=== PATIENT | male | born 1995 | race African-American/Black ===

== ENCOUNTER 2020-10-15 16:18 | Emergency (ER) | payer BC, OTHER, SELFPAY ==
[2020-10-15 16:19] VITALS: BP 129/93; PULSE 73; RESP 18; TEMP 36.6; O2SAT 98; BMI 23.7
[2020-10-15 16:29] VITALS: O2SAT 98
--- NOTE | 2020-10-15 17:03 | EDS_ITS ---
HPI History of Present Illness Chief Complaint: Cough Narrative Narrative: 25-year-old male with no significant medical history presenting with cough, rhinorrhea,, subjective fevers at home for the last 24 hours. Patient states he had the [employer] COVID-19 vaccine previously. Patient does not have a thermometer. He does admit to chills and sweats. Patient does not have change in taste or smell. Patient is in the [employer] and is currently supposed to go back to his duty post in 2 days and needed to be tested for Covid in order to be able to get back on a plane. Patient denies chest pain or shortness of breath. [facility] Medical History Rhabdomyolysis Home Medications No Known/Unobtainable [No Known Home Medications] 04/01/14 [History Last Taken Unknown] Allergy/AdvReac Type Severity Reaction Status Date / Time No Known Allergies Allergy Verified 10/15/20 16:19 Social History Smoking Status: Never smoker ROS ROS ED Constitutional Constitutional ED: Reports chills and sweats; Denies subjective Eyes Eyes: Reports blurry vision and diplopia ENT ENT ED: Reports rhinorrhea and sore throat Cardiovascular Cardiovascular: Denies chest pain or palpitations Respiratory/Chest Respiratory/Chest: Reports cough; Denies dyspnea, dyspnea on exertion or sputum Gastrointestinal Gastrointestinal: Denies abdominal pain, constipation, diarrhea, nausea or vomiting Genitourinary Genitourinary ED: Denies dysuria or hematuria Musculoskeletal Musculoskeletal: Reports myalgias; Denies arthralgias, back pain or neck pain Integumentary Denies abscess or rash Neurologic Neurologic: Reports headache(s); Denies paresthesias Psychiatric Psychiatric: Denies anxiety or depression EXAM Physical Exam Const Vital Signs: 10/15/20 16:19 10/15/20 16:29 Temperature 97.8 F Temperature Source Temporal Pulse Rate 73 Respiratory Rate 18 Respiratory Effort Normal Non-Labored Respiratory Depth Normal Respiratory Pattern Normal Blood Pressure 129/93 H Blood Pressure Mean 105 Pulse Ox 98 Oxygen Delivery Method Room Air Room Air Positive well nourished General Appearance ED: NAD; Negative for pallor HEENT Reports moist mucous membranes Negative for trauma Eyes PERRL and EOMs intact bilaterally Neck no lymphadenopathy and supple Resp normal respiratory effort Cardio regular rate and regular rhythm Neuro oriented x3, CN's II-XII intact bilaterally and no sensory deficits noted Sensorium / Orientation: alert Motor Exam: strength 5/5 throughout Psych mental status grossly normal Skin no rashes or lesions noted General Skin Exam: Negative for jaundice or pallor MDM MDM MDM Narrative Medical decision making narrative: Patient presenting with mild viral symptoms. Patient needs to be tested for COVID-19 in order to get back to his duty station. Today is day 2 of symptoms of subjective fevers, chills, sweats. Patient denies any chest pain or shortness of breath. Patient is already been vaccinated with the [employer] COVID-19 vaccine. I will obtain Covid PCR and patient will be sent home for quarantine until this test results. Patient counseled that he may need to be tested on the fourth and fifth days these of the days of the highest viral shed and this may delay his transport back to his duty post and [place]. Patient counseled to call his superior officer and inform him of this. If patient test positive for COVID-19 he should quarantine at home until his symptoms improve. Patient given strict return precautions if he has worsening symptoms such as chest pain, shortness of breath, generalized weakness. He acknowledges understanding. Impression: 1. Viral syndrome Discharge Plan Triage Chief Complaint: Cough ED Provider: Wayne Rodriguez Dx/Rx/DC Orders Instructions: ED Viral Syndrome (Adult) Prescriptions: No Action No Known Home Medications RF: 0 Primary Care Provider: Mushtaq Metz Referrals: Mushtaq Metz MD [Primary Care Provider] - Disposition Disposition: Home, Self Care
[2020-10-15 17:21] VITALS: O2SAT 97
[2020-10-15 18:01] LABS: Probe Check PASS; Specimen Processing Control PASS
== END 2020-10-15 17:26 | disposition home or self-care (01) ==
LOC: ED 17:25
PROVIDERS: Emergency Provider Student in an Organized Health Care Education/Training Program
DX: B34.9 Viral infection, unspecified (principal)
CPT/HCPCS: 87635; 99282; U0005; U0003